=== PATIENT | female | born 1990 | race Caucasian/White ===

== ENCOUNTER → 2022-11-09 | Outpatient (CLI) | payer OTHER ==
[~2022-11-09] MED LIST: CITA20 PO; LEVSOD50 PO
[2022-11-23 14:09] LABS: HPV 16 Negative (Negative); HPV 18 Negative (Negative); HPV OTHER HR TYPES Negative (Negative)
== END | disposition home or self-care (01) ==
LOC: LAB 09:30 → LAB SHORT 09:30
PROVIDERS: Family Medicine
DX: Z01.419 Encounter for gynecological examination (general) (routine) without abnormal findings (principal)
CPT/HCPCS: 87624; G0145

== ENCOUNTER → 2025-09-12 | Outpatient (CLI) | payer OTHER | LOC: LAB 18:31 → LAB SHORT 18:31 | DX: O36.80X0 Pregnancy with inconclusive fetal viability, not applicable or unspecified (principal) | CPT/HCPCS: 84702 ==

== ENCOUNTER → 2025-09-14 | Outpatient (CLI) | payer OTHER | LOC: LAB 15:37 → LAB SHORT 15:37 | DX: O36.80X0 Pregnancy with inconclusive fetal viability, not applicable or unspecified (principal) | CPT/HCPCS: 84702 ==

== ENCOUNTER 2025-09-17 16:29 | Emergency (ER) | payer OTHER ==
[~2025-09-17] VITALS: Ht 175.3 cm; Wt 98.4 kg
[2025-09-17 16:49] VITALS: BP 136/86
[2025-09-17] MEDS ORDERED: Methotrexate Sod 25MG / ML 2ML Vial IM ONE (16:55)
== END 2025-09-17 17:55 | disposition home or self-care (01) ==
LOC: ER 16:29
DX: O00.90 Unspecified ectopic pregnancy without intrauterine pregnancy (principal); Z79.890 Hormone replacement therapy; Z79.899 Other long term (current) drug therapy
CPT/HCPCS: 96372; J9260

== ENCOUNTER → 2025-09-20 | Outpatient (CLI) | payer OTHER | END | disposition home or self-care (01) | LOC: LAB 13:45 → LAB SHORT 13:45 | DX: O00.101 Right tubal pregnancy without intrauterine pregnancy (principal) | CPT/HCPCS: 84702 ==